=== PATIENT | female | born 1975 | race Asian ===

== ENCOUNTER → 2018-12-31 13:58 | Outpatient (CLI) | payer BC ==
--- NOTE | ~2018-12-31 | ST ---
PATIENT:ANGEL HAUSER MEDICAL RECORD: [id number] SEX: F LOCATION:[facility] ORDER #: ADMISSION DATE: 12/31/18 AGE OF PATIENT: 43 REFERRING PHYSICIAN: INTERPRETING PHYSICIAN: WALTER FUENTES MD DATE OF SERVICE: 12/31/2018 PROCEDURE: Treadmill stress test. Baseline ECG is normal. Exercised for 10 minutes on Rojelio protocol. Maximum heart rate 157 beats per minute, greater than 85% max predicted. No ECG changes of ischemia. No symptoms of ischemia. Normal blood pressure response to exercise. No arrhythmias noted. Good exercise tolerance for age. TRANSINT:[id number] Voice Confirmation ID: [id number] DOCUMENT ID: [id number] WALTER FUENTES MD CC: [id number] DICTATION DATE: 01/07/19 1455 HEDIS COORDINATOR: 01/07/19 1503 DEP CLI 12/31/18 [id number] [place] [address]
--- NOTE | 2019-01-06 13:26 | EC ---
PATIENT:ANGEL HAUSER DATE OF SERVICE: 12/31/18 SEX: F MEDICAL RECORD: [id number] DATE OF : 71 LOCATION:[facility] AGE OF PATIENT: 43 ADMISSION DATE: 12/31/18 REFERRING PHYSICIAN: INTERPRETING PHYSICIAN: WALTER FUENTES MD ECHOCARDIOGRAM REPORT ECHO CHARGES 4 ECHO COMPLETE Date: 12/31/18 CLINICAL DIAGNOSIS: MURMUR ECHOCARDIOGRAPHIC MEASUREMENTS (adult normal given) AC root (d.<3.7cm) 2.9 cm LV Septum d (<1.2 cm> 1.2 cm Valve Excursion 1.8 cm LV Septum (systole) 1.4 cm Left Atria (s.<4.0cm> 3.1 cm LVPW d(<1.2cm) 1.4 cm RV (d.<2.3cm) 3.5 cm LVPW (sytole) 1.6 cm LV diastole(<5.6CM) 3.8 cm MV E-F(>70mm/sec) cm LV systole 2.8 cm LVOT Diameter 1.9 cm MV exc.(>10mm) 0.60 cm Est.ejection fraction (50-75%) % DOPPLER: LVIT cm/sec A 77.0 cm/sec E 70.0 cm/sec LA cm/sec RVSP 25 mmHg LVOT 82 cm/sec AOP1/2T m/s Asc. Ao 105 cm/sec RVOT 72 cm/sec RA cm/sec PA 84 cm/sec AV Gradient Peak 4.40 mmHg AV Mean 1.97 mmHg AV Area 2.5 cm MV Gradient Peak 2.71 mmHg MV Mean 0.99 mmHg MV Area cm COMMENTS: Tow Truck Operator: 2 AARON DURAN Setter Automatic Spinning Lathe: 3 Dr. Gallardo TAPE# PACS Pericardial Effusion N DATE OF SERVICE: Adequate 2-D, color-flow and spectral Doppler, and M-mode. Borderline LVH. LV internal dimensions are normal. Wall motion is normal. EF is 55%. Aortic valve is tricuspid. No evidence of stenosis by Doppler interrogation. Left atrium is normal at 3.1 cm. Mitral valve shows no prolapse. Trace MR. Right-sided chambers are grossly normal. Trace TR. TRANSINT:[id number] Voice Confirmation ID: [id number] DOCUMENT ID: [id number] ECHOCARDIOGRAM REPORT [id number] MURTAZA,ANGEL WALTER FUENTES MD at 1326 CC: [id number] DICTATION DATE: 01/01/19 1314 PROBATE PARALEGAL: 01/01/19 1458 DEP CLI 12/31/18 [facility] [address] [place] [address]
== END | disposition home or self-care (01) ==
LOC: D.HCCARDIO 13:58
PROVIDERS: ATTEND Internal Medicine Interventional Cardiology
DX: R01.1 Cardiac murmur, unspecified (principal)

== ENCOUNTER → 2019-08-14 15:44 | Outpatient (CLI) | payer BC | END | disposition home or self-care (01) | LOC: D.LABREF 15:44 | PROVIDERS: ATTEND Urology | DX: R82.90 Unspecified abnormal findings in urine (principal); R31.9 Hematuria, unspecified ==